=== PATIENT | female | born 1990 | race American Indian/Alaskan Native ===

== ENCOUNTER 2017-01-30 00:34 | Emergency (ER) | payer MEDICAID ==
[2017-01-30 00:44] VITALS: BMI 21.7
[2017-01-30 00:47] VITALS: TEMP 98.4; O2SAT 99
--- NOTE | 2017-01-30 00:57 | ED PDOC ---
Arrival/HPI - General Chief Complaint: Female Genitourinary Time Seen by Provider: 01/30/17 00:39 Historian: Patient - History of Present Illness Narrative History of Present Illness (Text): 01/30/17 00:51 Brie Tapia is a 26 year old female who presents to the emergency department complaining of abdominal cramps for past 2 weeks. Patient was evaluated at [facility] on 01/11/2017 for similar symptoms. Ultrasound done at that time showed no evidence of IUP. States she was also evaluated by PMD, who informed that her beta-hCG levels are elevated, however unable to recall the exact value at ed. Patient came to emergency department today because she is concerned of possible ectopic . Denies vaginal bleeding or discharge. Denies fever, chills, nausea, vomiting, diarrhea, urinary symptoms, or any other complaints at this time. Time/Duration: > week (2 weeks ) Symptom Onset: Gradual Severity Level: Mild Activities at Onset: Light Past Medical History - Provider Review Nursing Documentation Reviewed: Yes - Cardiac Hx Cardiac Disorders: No - Pulmonary Hx Respiratory Disorders: No - Neurological Hx Neurological Disorder: No - HEENT Hx HEENT Disorder: No - Renal Hx Renal Disorder: No - Endocrine/Metabolic Hx Endocrine Disorders: No - Hematological/Oncological Hx Anemia: Yes - Integumentary Hx Dermatological Disorder: No - Musculoskeletal/Rheumatological Hx Musculoskeletal Disorders: No - Gastrointestinal Hx Gastrointestinal Disorders: No - Genitourinary/Gynecological Hx Genitourinary Disorders: No - Psychiatric Hx Psychophysiologic Disorder: No Hx Substance Use: No Family/Social History - Physician Review Nursing Documentation Reviewed: Yes Family/Social History: No Known Family HX Smoking Status: Never Smoked Hx Alcohol Use: No Hx Substance Use: No Allergies/Home Meds Allergies/Adverse Reactions: Allergies No Known Allergies Allergy (Verified 01/11/17 14:06) Home Medications: Home Meds Medication Instructions Recorded Confirmed No Known Home Med 01/11/17 01/30/17 Review of Systems - Physician Review All systems were reviewed & negative as marked: Yes - Review of Systems Constitutional: Normal. absent: Fatigue, Fevers Respiratory: Normal. absent: SOB, Cough Cardiovascular: Normal. absent: Chest Pain, Palpitations Gastrointestinal: Abdominal Pain. absent: Diarrhea, Nausea, Vomiting Genitourinary Female: Normal Neurological: Normal. absent: Headache, Dizziness Psychiatric: Normal Physical Exam Vital Signs Reviewed: Yes Vital Signs Temp Pulse Resp BP Pulse Ox 01/30/17 03:16 82 17 119/71 99 01/30/17 00:44 98.4 F 84 18 112/62 99 Temperature: Afebrile Blood Pressure: Normal Pulse: Regular Respiratory Rate: Normal Appearance: Positive for: Well-Appearing, Non-Toxic, Comfortable Pain Distress: None Mental Status: Positive for: Alert and Oriented X 3 - Systems Exam Head: Present: Atraumatic, Normocephalic Pupils: Present: PERRL Conjunctiva: Present: Normal Mouth: Present: Moist Mucous Membranes Respiratory/Chest: Present: Clear to Auscultation, Good Air Exchange. No: Respiratory Distress, Accessory Muscle Use Cardiovascular: Present: Regular Rate and Rhythm, Normal S1, S2. No: Murmurs Abdomen: Present: Normal Bowel Sounds. No: Tenderness, Distention, Peritoneal Signs Upper Extremity: Present: Normal Inspection. No: Cyanosis, Edema Lower Extremity: Present: Normal Inspection. No: Edema Neurological: Present: GCS=15, CN II-XII Intact, Speech Normal, Motor Func Grossly Intact, Normal Sensory Function Skin: Present: Warm, Dry, Normal Color. No: Rashes Psychiatric: Present: Alert, Oriented x 3, Normal Insight, Normal Concentration Medical Decision Making ED Course and Treatment: 01/30/17 00:58 Impression: A 26 year old female who presents to ed for evaluation of 2 week duration of abdominal cramps. Plan: -- Labs -- HCG -- transvaginal ultrasound -- Urinalysis Progress Notes: 01/30/17 02:30 Ultrasound results reviewed: IMPRESSION: 1. Intrauterine , of uncertain viability. Recommend followup. 2. Probable fibroid. 01/30/17 04:16 Patient is stable for discharge. Advised to follow up with OB within few days and present to ed for worsening or new symptoms. - Lab Interpretations Lab Results: 01/30/17 00:58 01/30/17 00:57 Lab Results 01/30/17 00:58: Urine Color Yellow, Urine Appearance Sl cloudy, Urine pH 6.0, Ur Specific [place] 1.025, Urine Protein Negative, Urine Glucose (UA) Negative, Urine Ketones Negative, Urine Blood Negative, Urine Nitrate Negative, Urine Bilirubin Negative, Urine Urobilinogen 1.0 H, Ur Leukocyte Esterase Trace H, Urine RBC 0 - 2, Urine WBC 1 - 3, Ur Epithelial Cells 1 - 3, Urine Bacteria Mod 01/30/17 00:58: Beta HCG, Quant 35052.00 H 01/30/17 00:58: WBC 8.8 D, RBC 3.91, Hgb 11.1 L, Hct 32.7 L, MCV 83.6, MCH 28.4 , MCHC 33.9, RDW 13.6, Plt Count 245, MPV 10.4, Gran % 73.5 H, Lymph % (Auto) 19.9 L, Lewis % (Auto) 5.0, Eos % (Auto) 1.4 L, Baso % (Auto) 0.2, Gran # 6.44, Lymph # 1.7, Lewis # 0.4, Eos # 0.1, Baso # 0.02 01/30/17 00:57: Sodium 137, Potassium 3.6, Chloride 102, Carbon Dioxide 26, Anion Gap 13, BUN 11, Creatinine 0.6, Est GFR ( Amer) > 60, Est GFR (Non- Af Amer) > 60, Random Glucose 113 H, Calcium 9.3, Total Bilirubin 0.6, AST 33, ALT 30, Alkaline Phosphatase 57, Total Protein 7.4, Albumin 4.2, Globulin 3.2, Albumin/Globulin Ratio 1.3 I have reviewed the lab results: Yes - RAD Interpretation Narrative RAD Interpretations (Text): EXAM: US First Trimester, Transabdominal FINDINGS: Gestation: Gestational sac. Yolk sac. No pole. Mean sac diameter of 1.29 cm, correlating with gestational age of 5 weeks 3 days. Uterus/cervix: No subchorionic hemorrhage. No cervical dilatation or effacement. 2.4 x 2.7 x 2.5 cm uterine mass. Ovaries: Normal ovaries. No adnexal masses. Free fluid: Trace free fluid within pelvis. IMPRESSION: 1. Intrauterine , of uncertain viability. Recommend followup. 2. Probable fibroid. 3. Incidental/non-acute findings are described above. EXAM: US , Transvaginal FINDINGS: Gestation: Gestational sac. Yolk sac. No pole. Mean sac diameter of 1.29 cm, correlating with gestational age of 5 weeks 3 days. Uterus/cervix: No subchorionic hemorrhage. No cervical dilatation or effacement. 2.4 x 2.7 x 2.5 cm uterine mass. Ovaries: Normal ovaries. No adnexal masses. Free fluid: Trace free fluid within pelvis. IMPRESSION: 1. Intrauterine , of uncertain viability. Recommend followup. 2. Probable fibroid. 3. Incidental/non-acute findings are described above Radiology Orders: 01/30/17 00:47 OB TRANSVAGINAL [US] Stat Scarf Gluer: Radiologist - Scribe Statement The provider has reviewed the documentation as recorded by the Carlos Jiménez Provider Attestation: All medical record entries made by the Carlos were at my direction and personally dictated by me. I have reviewed the chart and agree that the record accurately reflects my personal performance of the history, physical exam, medical decision making, and the department course for this patient. I have also personally directed, reviewed, and agree with the discharge instructions and disposition. Disposition/Present on Arrival - Present on Arrival Any Indicators Present on Arrival: No History of DVT/PE: No History of Uncontrolled Diabetes: No Urinary Catheter: No History of Decub. Ulcer: No History Surgical Site Infection Following: None - Disposition Have Diagnosis and Disposition been Completed?: Yes Diagnosis: Disposition: HOME/ ROUTINE Disposition Time: 03:04 Condition: GOOD Discharge Instructions (ExitCare): First Trimester (ED)
[2017-01-30 01:14] LABS: ADD MANUAL DIFF? NO
[2017-01-30 01:33] LABS: URINE BILIRUBIN NEGATIVE (NEGATIVE); URINE BLOOD NEGATIVE (NEGATIVE); URINE GLUCOSE (UA) NEGATIVE (NEGATIVE); URINE KETONE NEGATIVE (NEGATIVE); URINE LEUKOCYTE ESTERASE TRACE Leu/uL (NEGATIVE); URINE PROTEIN NEGATIVE mg/dL (<30 mg/dL)
[2017-01-30 01:35] LABS: BASO # 0.02 K/mm3 (0.0-2.0); BASO % 0.2 % (0.0-3.0); EOS # 0.1 (0.0-0.7); EOS % 1.4 % (1.5-5.0); GRAN # 6.44 (1.4-6.5); GRAN % 73.5 % (50.0-68.0); HEMATOCRIT 32.7 % (36.0-48.0); LYMPH # 1.7 (1.2-3.4); LYMPH % 19.9 % (22.0-35.0); MEAN CELL VOLUME 83.6 fL (80.0-105.0); MEAN CORPUSCULAR HEMOGLOBIN 28.4 pg (25.0-35.0); MEAN CORPUSCULAR HGB CONC 33.9 g/dl (31.0-37.0); MEAN PLATELET VOLUME 10.4 fl (7.0-11.0); MONO # 0.4 (0.1-0.6); PLATELET COUNT 245 10^3/uL (120.0-450.0); RED CELL DISTRIBUTION WIDTH 13.6 % (11.5-14.5); WHITE BLOOD COUNT 8.8 10^3/ul (4.5-11.0)
[2017-01-30 01:44] LABS: ALB/GLOB RATIO 1.3 (1.1-1.8); ALKALINE PHOSPHATASE 57 U/L (38-133); ALT/SGPT 30 U/L (7-56); AST/SGOT 33 U/L (15-39); BILIRUBIN,TOTAL 0.6 mg/dL (0.2-1.3); BLOOD UREA NITROGEN 11 mg/dL (7-21); CALCIUM 9.3 mg/dL (8.4-10.5); CARBON DIOXIDE 26 mmol/L (21-33); CHLORIDE 102 mmol/L (98-107); GFR AFRICAN-AMERICAN > 60; GLUCOSE,RANDOM 113 mg/dL (70-110); POTASSIUM 3.6 mmol/L (3.6-5.0); SODIUM 137 mmol/L (132-148); TOTAL PROTEIN 7.4 g/dL (5.8-8.3)
[2017-01-30 01:46] LABS: URINE APPEARANCE SL CLOUDY (CLEAR); URINE COLOR YELLOW (YELLOW)
[2017-01-30 01:49] LABS: URINE RBC 0 - 2 /hpf (0-2)
[2017-01-30 01:50] LABS: URINE BACTERIA MOD (NEG)
--- NOTE | 2017-01-30 02:22 | US ---
EXAM: US First Trimester, Transabdominal CLINICAL HISTORY: 26 years old, female; Pain; Other: Pelvic pain; Gestational age or lmp: 01/11/2017; ; Additional info: R/O ectopic TECHNIQUE: Real-time transabdominal obstetrical ultrasound of the maternal pelvis and a first trimester with image documentation. COMPARISON: US - OB TRANSVAGINAL 01/11/2017 5:10:28 PM FINDINGS: Gestation: Gestational sac. Yolk sac. No pole. Mean sac diameter of 1.29 cm, correlating with gestational age of 5 weeks 3 days. Uterus/cervix: No subchorionic hemorrhage. No cervical dilatation or effacement. 2.4 x 2.7 x 2.5 cm uterine mass. Ovaries: Normal ovaries. No adnexal masses. Free fluid: Trace free fluid within pelvis. IMPRESSION: 1. Intrauterine , of uncertain viability. Recommend followup. 2. Probable fibroid. 3. Incidental/non-acute findings are described above. EXAM: US , Transvaginal CLINICAL HISTORY: 26 years old, female; Pain; Other: Pelvic pain; Gestational age or lmp: 01/11/2017; ; Additional info: R/O ectopic TECHNIQUE: Real-time transvaginal obstetrical ultrasound of the maternal pelvis and a first trimester with image documentation. Transvaginal imaging was used for better evaluation of the fetus and adnexa. COMPARISON: US - OB TRANSVAGINAL 01/11/2017 5:10:28 PM FINDINGS: Gestation: Gestational sac. Yolk sac. No pole. Mean sac diameter of 1.29 cm, correlating with gestational age of 5 weeks 3 days. Uterus/cervix: No subchorionic hemorrhage. No cervical dilatation or effacement. 2.4 x 2.7 x 2.5 cm uterine mass. Ovaries: Normal ovaries. No adnexal masses. Free fluid: Trace free fluid within pelvis.
[2017-01-30 03:18] VITALS: BP 119/71; PULSE 82; RESP 17
== END 2017-01-30 03:16 | disposition home or self-care (01) ==
LOC: ED 00:34
DX: O26.91 Pregnancy related conditions, unspecified, first trimester (principal); Z3A.01 Less than 8 weeks gestation of pregnancy

== ENCOUNTER 2017-02-22 15:41 | Emergency (ER) | payer MEDICAID ==
[2017-02-22 15:41] VITALS: BMI 21.7
[2017-02-22 15:52] VITALS: TEMP 99.1; O2SAT 98
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
[2017-02-22 16:31] LABS: PH,URINE 6.5 (4.7-8.0); URINE BILIRUBIN NEGATIVE (NEGATIVE); URINE BLOOD NEGATIVE (NEGATIVE); URINE GLUCOSE (UA) NEGATIVE (NEGATIVE); URINE KETONE TRACE mg/dL (NEGATIVE); URINE LEUKOCYTE ESTERASE TRACE Leu/uL (NEGATIVE); URINE PROTEIN NEGATIVE mg/dL (<30 mg/dL); URINE UROBILINOGEN 0.2 E.U./dL (<1 E.U./dL)
[2017-02-22 16:35] LABS: URINE APPEARANCE CLEAR (CLEAR); URINE COLOR YELLOW (YELLOW)
[2017-02-22 17:09] VITALS: PULSE 79
[2017-02-22 17:28] LABS: URINE AMORPHOUS SEDIMENT FEW; URINE BACTERIA MOD (NEG)
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
[2017-02-22 18:13] VITALS: BP 114/58; RESP 16
== END 2017-02-22 18:13 | disposition home or self-care (01) ==
LOC: ED 15:41
DX: Z04.3 Encounter for examination and observation following other accident (principal); Y04.2XXA Assault by strike against or bumped into by another person, initial encounter; Y93.89 Activity, other specified; Y92.410 Unspecified street and highway as the place of occurrence of the external cause